=== PATIENT | male | born 1940 | race Caucasian/White ===

== ENCOUNTER 2020-01-20 16:12 | Inpatient (IN) | payer OTHER ==
[~2020-01-20] VITALS: Ht 175.3 cm; Wt 104.8 kg
[~2020-01-20 16:12] MED LIST: ACYCLOVIR 400400 MG PO; ASA5UEC PO; ASPIR 8181 MG PO; ASPIRIN325 PO; CIPRO500 MG PO; COLACE100 MG PO; COZAAR 50 MG TA50 M2; DEXILANT60 MG PO; FLAGYL500 MG PO; FLOMAX0.4 MG PO; GABAPENTIN 100100 MG PO; GLIPIZIDE 10 MG10 MG PO; GLUCOPHAGE XR500 MG PO; INVOKANA100 MG PO; K-DUR 20 MEQ T20 MEQ PO; LASIX 40 MG TAB40 M2 PO; LOTENSIN20 MG PO; METFORMIN HCL500 MG PO; MOTION RELIEF25 MG PO; NAMZARIC 28 MG1 EACH PO; NYSTATIN100000 UNI SWISH&SPIT; POTASSIUM20 PO; PREDNISONE 10 M10 MG PO; PREDNISONE 20 M20 MG PO; SEROQUEL 25 MG25 M1 PO; SIMVASTATIN40 MG PO; SYNTHROID50 MCG PO; TYLENOL325 MG PO; ZOFRAN4 MG PO
[2020-01-20 16:25] VITALS: BP 129/52
[2020-01-20 16:44] LABS: ABSOLUTE NEUTROPHILS 13.8 thou/uL (1.4-8.2); BASOPHILS 0.2 % (0.0-2.0); EOSINOPHILS 0.1 % (0.0-3.0); HEMATOCRIT 54.7 % (42.0-52.0); HEMOGLOBIN 18.4 gm/dL (14.0-18.0); LYMPHOCYTES 3.1 % (24.0-44.0); MCH 32.2 pg (26.0-34.0); MCHC 33.6 g/dL (28.0-37.0); MCV 95.7 fL (80.0-100.0); MONOCYTES 6.6 % (1.0-8.0); PLATELET COUNT 171 thou/uL (150-400); RBC 5.71 mil/uL (4.50-6.00); RDW 13.9 % (10.5-14.5); WBC 15.3 thou/uL (4.0-11.0)
[2020-01-20 17:01] LABS: ANION GAP 11 mmol/L (7-16); BUN 70 mg/dL (7-18); CALCIUM 7.7 mg/dL (8.5-10.1); CHLORIDE 103 mmol/L (98-107); CO2 24 mmol/L (21-32); GLUCOSE 316 mg/dL (74-106); POTASSIUM 4.4 mmol/L (3.5-5.1); SODIUM 138 mmol/L (136-145)
[2020-01-20 17:06] LABS: URINE BILIRUBIN 3+ (Negative); URINE BLOOD 1+ (Negative); URINE CLARITY CLEAR; URINE COLOR YELLOW; URINE GLUCOSE-RANDOM* 1+ (Negative); URINE KETONES 1+ (Negative); URINE LEUKOCYTES-REFLEX NEGATIVE (Negative); URINE NITRITE-REFLEX NEGATIVE (Negative); URINE PROTEIN (DIPSTICK) 1+ (Negative); URINE SPECIFIC GRAVITY >= 1.030 (1.005-1.035)
[2020-01-20 17:08] LABS: ICTOTEST (BILI CONFIRMATORY) Negative (Negative)
[2020-01-20 17:11] LABS: ALBUMIN 2.5 g/dL (3.4-5.0); SGOT 45 U/L (15-37); SGPT 26 U/L (30-65); TOTAL BILIRUBIN 2.4 mg/dL (<0.1-1.0); TOTAL PROTEIN 6.2 g/dL (6.4-8.2); TROPONIN-I <0.06 ng/mL (<0.06)
[2020-01-20 17:19] LABS: SQUAMOUS None Seen /LPF (0-3); URINE RBC 3-10 Few /HPF (0-2); URINE WBC-REFLEX 6-15 Few /HPF (0-5)
[2020-01-20 17:20] LABS: BACTERIA-REFLEX >30 Many /HPF (None Seen); HYALINE CASTS 4-10 Moderate /LPF (None Seen)
[2020-01-20 17:20] LABS: INR 1.3; PROTIME 13.8 Seconds (9.3-11.4)
[2020-01-20 17:22] LABS: CRYSTALS None Seen /LPF (None Seen); FINE GRANULAR CASTS 0-3 Few /LPF (None Seen)
[2020-01-20 18:39] LABS: HCO3 20.2 mmol/L (22.0-26.0); PCO2 35.3 mmHg (35.0-45.0); PO2 61.7 mmHg (80.0-100.0); pH 7.375 (7.360-7.450); sO2 91.3 % (92.0-98.0)
[2020-01-20 21:32] VITALS: BP 133/105
[2020-01-20 21:37] VITALS: BP 103/65
[2020-01-20 21:46] VITALS: BP 145/61
[2020-01-20 22:15] VITALS: BP 152/121
[2020-01-20 22:46] VITALS: BP 158/77
[2020-01-21] VITALS (16 sets, daily range): BP systolic 104–153; BP diastolic 36–83
--- NOTE | 2020-01-21 04:01 | NUR ---
ASSESSMENTS CHARTED, MEDS GIVEN CHARTED. PATIENT ARRIVED IN ICU AT 2130 FROM ER WITH DIAGNOSIS OF AMS, RHABDO, FALL, UTI, SEPSIS. PATIENT LIVES ALONE, FOUND DOWN IN HIS HOUSE LAST KNOWN NORMAL WAS 2 DAYS PRIOR. PATIENT HAS WOUNDS ON HIS LEFT KNEE, LEFT FOOT, RIGHT EYE, RIGHT ARM, RIGHT SIDE CHEST AND ABDOMEN. PATIENT CONFUSED, UNABLE TO SPEAK COHERENTLY, DOES NOT FOLLOW COMMANDS ALL THE TIME. WAS CLEANED UP IN ER, NEEDED ADDITIONAL CLEANUP. SCD'S APPLIED, LEFT HAND PIV INFILTRATED SHORTLY AFTER ARRIVAL, NEW IV PLACED IN LEFT AC. PLACED ON BIPAP, ABDOMINAL BREATHING TACHYPNIC. AUSTIN IN PLACE, ACHS, ABX THERAPY AND MAINTENANCE FLUID BEING GIVEN. FALL PRECAUTIONS IN PLACE. DOES NOT APPEAR TO BE IN PAIN.
[2020-01-21 06:14] LABS: HEMATOCRIT 53.3 % (42.0-52.0); HEMOGLOBIN 18.1 gm/dL (14.0-18.0); MCH 32.2 pg (26.0-34.0); MCV 94.8 fL (80.0-100.0); PLATELET COUNT 151 thou/uL (150-400); RBC 5.62 mil/uL (4.50-6.00); RDW 14.2 % (10.5-14.5); WBC 11.1 thou/uL (4.0-11.0)
[2020-01-21 06:29] LABS: ALBUMIN 2.5 g/dL (3.4-5.0); CALCIUM 8.2 mg/dL (8.5-10.1); CREATININE 1.1 mg/dL (0.7-1.3); MAGNESIUM 2.6 mg/dL (1.8-2.4); PHOSPHORUS 3.3 mg/dL (2.5-4.9); TOTAL BILIRUBIN 1.3 mg/dL (<0.1-1.0); TOTAL PROTEIN 6.3 g/dL (6.4-8.2)
[2020-01-21 06:38] LABS: INR 1.2; PROTIME 12.7 Seconds (9.3-11.4)
--- NOTE | 2020-01-21 08:40 | NUR ---
chart review. unable to visit with brigitte via phone call rt use of bipap. will cont following as needed for dc needs.
[2020-01-21 08:59] LABS: ABSOLUTE NEUTROPHILS 9.1 thou/uL (1.4-8.2)
--- NOTE | 2020-01-21 09:38 | NUR ---
WOUND CONSULT; LIMITED ASSESSMENT DUE TO COVID19 RESTRICTIONS PER DR RAYMUNDO. PICTURES SHOW ABRAISIONS TO THE CHAEST AND ARM. NO S/S OF INFECTION. THE KNEE HAS S/S CONSISTANT WITH A DTI WITH BRUSING AND AN OPEN AREA I CANNOT R/O ANOTHER PROCESS FROM OR THE DRAINAGE FROM THIS PICTURE. THERE ARE ABRASIONS TO THE LEFT FOOT SIMILAT THE THE WOUND NOTED ABOVE. RECOMMENDATIONS; 1-BARRIER CREAM TO BUTTOCKS/SACRUM (PREVENTION MEANSRE) 2-RIGHT KNEE; XEROFORM GAUZE TO WOUND BED, COVER WITH A BORDER FOAM DAILY. 3-LEWFT FOOT; XEROFORM GAUZE TO WOUND BED, COVER WITH A BORDER FOAM DAILY. DISCUSSED WITH EDELMIRA
[2020-01-21] MEDS ORDERED: NEURONTIN100 MG PO (10:32)
[2020-01-21] MEDS ORDERED: GLIPIZIDE 10 MG10 MG PO (10:33)
--- NOTE | 2020-01-21 12:40 | NUR ---
VASCULAR ACCESS CONSULTED FOR PICC LINE. DR.D.GEHA MATTHEWS, PT HAS +BC. PT'S LABS,MEDS,HISTORY,ORDER AND CONSENT VERIFIED. ATTEMPTED RUC CEPHALIC UNABLE PASS GUIDEWIRE. ATTEMPTED KRIS CEPHALIC UNABLE TO PASS GUIDEWIRE, KRIS BASILIC WIDELY PATENT WITH USG 4FR POWER DL PICC TRIMMED TO 50CM INSERTED TO 1CM EXTERNAL STAT CXR ORDERED. PT TOLERATED WELL
--- NOTE | 2020-01-21 14:08 | EKG ---
[facility] [address] [place] [address] ELECTROCARDIOGRAM REPORT Name: AUGUST GRIER Room #: 247-P ADM IN M.R.#: [id number] Admission: 01/20/20 Attend Phys: Caterina Gonzalez MD Discharge: Date of : 42 Report #: [id number] THIS REPORT FOR: cc: Anival Singh MD, Kirk D. MD Couchonnal, Luis F. 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 : 1940 Requested By: Regine Peres Order Number: [id number] MD: Niall Tejeda Measurements Intervals [place] Rate: 79 P: -50 [place]: 344 QRS: -43 QRSD: 114 T: 77 QT: 417 QTc: 479 Interpretive Statements Sinus or ectopic atrial rhythm Prolonged [place] interval Abnormal R-wave progression, late transition LVH with IVCD, LAD and secondary repol abnrm Compared to ECG 01/26/2018 19:40:06 Electronically Signed On 01-21-2020 14:06:48 CDT by Niall Tejeda [email or web address] <ELECTRONICALLY SIGNED> By: Niall Tejeda MD 01/21/20 1406 1624 1624 Niall Tejeda MD /EPI
--- NOTE | 2020-01-21 15:15 | NUR ---
CXR SHOWS PICC GOING UP R IJ, POWER FLUSHED AND PULLED BACK. 2ND CXR STATES SAME POSITION. PULLED BACK AGAIN AND POWER FLUSHED. 3RD CXR ORDERED
--- NOTE | 2020-01-21 15:56 | NUR ---
CXR CONFIRMS PICC IN SVC, RELEASED FOR IMMEDIATE USE PER PROTOCOL TO EDWARD HICKEY
--- NOTE | 2020-01-21 16:22 | NUR ---
PATIENT REMAINS ON BIPAP THIS SHIFT. 50% O2 WITH O2 SATURATION >96%. PATIENT BIPAP MASK CHANGED BY RT THIS SHIFT. PATIENT WAS FREQUENTLY REMOVING BIPAP AND MEDICAL EQUIPMENT. PHYSICIAN NOTIFIED, PATIENT IN RESTRAINTS FOR SAFETY. SPOKE WITH PATIENT'S DAUGHTER, REPORTED PT BASELINE MENTAL STATUS IS ORIENTED TO SELF ONLY. REPORTS PT ABLE TO CARE FOR SELF AT HOME BY PERFORMING ADL'S. PT TAKES MEDS SET UP BY FAMILY IN CONTAINER AT HOME. REPORTS PATIENT AMBULATES WITH WALKER. PATIENT FOLLOWING COMMANDS TO SQUEEZE HANDS, FLEX/EXTEND EXTREMITIES, ASSIST WITH TURNING. PATIENT HAD LARGE BOWEL MOVEMENT THIS SHIFT. AUSTIN REMAINS PATENT AND SECURED. PICC LINE PLACED THIS SHIFT, MEDICATION AND FLUIDS RESUMED WHEN LINE AVAILABLE FOR USE. FALL PRECAUTIONS IN PLACE.
[2020-01-22] VITALS (12 sets, daily range): BP systolic 79–180; BP diastolic 42–133
--- NOTE | 2020-01-22 08:03 | NUR ---
ASSESSMENTS CHARTED, MEDS CHARTED GIVEN. PATIENT REMAINS CONFUSED, AND RESTLESS. ON RESTRAINTS, STILL PULLING OFF MEDICAL EQUIPMENT. C/O NEEDING A DRINK, SWABBED HIS MOUTH MULTIPLE TIMES. CHANGED FROM HIGH FLOW TO BIPAP DURING NIGHT. PATIENT HEART RHYTHM WAS IRREGULAR DURING SHIFT, PATIENT MADE DNR YESTERDAY.
[2020-01-22 10:18] LABS: HEMATOCRIT 48.5 % (42.0-52.0); HEMOGLOBIN 16.2 gm/dL (14.0-18.0); MCH 32.1 pg (26.0-34.0); MCHC 33.4 g/dL (28.0-37.0); MCV 96.2 fL (80.0-100.0); RBC 5.04 mil/uL (4.50-6.00); RDW 14.5 % (10.5-14.5); WBC 8.7 thou/uL (4.0-11.0)
[2020-01-22 10:26] LABS: CALCIUM 7.9 mg/dL (8.5-10.1); CREATININE 0.8 mg/dL (0.7-1.3); POTASSIUM 3.9 mmol/L (3.5-5.1)
--- NOTE | 2020-01-22 15:24 | NUR ---
ASSUMED CARE AT SHIFT CHANGE, ALERT AND CAN FOLLOW COMMANDS,VSS AND AFEBRILE. RESTRAINTS OFF AT 10 AM PATIENT IS ALERT, COOPERATIVE,AWARE OF HIS SUROUNDINGS,AND NEEDED MULTIPLE REORIENTATION THROUGH OUT THE DAY. AUSTIN D/CIED AND PATIENT IS VOIDING AND INCONTINENT. AND WILL CONTINUE WITH POC.
--- NOTE | 2020-01-22 16:13 | NUR ---
SW reviewed chart and spoke with attending physician. Pt is progressing towards goals for discharge. Awaiting repeat COVID-19 test results at this time. Pt will transfer out of ICU when bed is available. Pt will need therapy evals ordered once COVID results are available. GRACE is following to assist as needed with discharge planning.
--- NOTE | 2020-01-23 03:08 | NUR ---
ASSESSED AT START OF SHIFT @1900 PT AWAKE AND RESTLESS IN BED. ON 3L OF 02 AND PT KEEPS TAKING OUT O2. PULLED OUT IV. ORDERS RECEIVED FOR MITTENS RESTRAINT. MITTENS APPLIED AND PT CHECKED FREQLY. NEW IV INSERTED IN LFT UA AND ABX INFUISING. HYDRALAZINE GIVEN FOR BP 187/76. FALL PREC IN PLACE AND WILL CONT WITH POC TILL EOS.
[2020-01-23 04:04] VITALS: BP 145/60
[2020-01-23 05:45] LABS: CALCIUM 7.9 mg/dL (8.5-10.1); CREATININE 0.6 mg/dL (0.7-1.3); POTASSIUM 3.4 mmol/L (3.5-5.1)
[2020-01-23 05:52] LABS: HEMOGLOBIN 16.3 gm/dL (14.0-18.0); MCH 32.6 pg (26.0-34.0); MCV 95.9 fL (80.0-100.0); RDW 14.2 % (10.5-14.5); WBC 6.8 thou/uL (4.0-11.0)
[2020-01-23 07:45] VITALS: BP 161/58
--- NOTE | 2020-01-23 16:27 | NUR ---
PT AND OT SAW PT AND BOTH INDICATED THAT PT WOULD NEED POST ACUTE CARE STAY. CM CALLED AND SPOKE WITH PT'S DTR JONNY SHE INDICATED THAT SHE WOULD BE RECEPTIVE TO POST ACUTE CARE STAY. CM TO EMAIL [facility] LIST TOMORROW. CM TO FOLLOW INDICATED WITH DC PLANNING.
[2020-01-23 16:37] VITALS: BP 157/72
--- NOTE | 2020-01-23 18:54 | NUR ---
VSS-AFEBRILE. LUMGS DIMINISHED IN ALL ZEPEDA BILATERALLY. REMOVED MITTENS @ 1500, POLITE, AND COOPERATIVE SINCE REMOVAL. TOTAL BATH AND LINEN CHANGE. GOOD APPETITE, FINISHED ALL MEALS. CALLS APPROPRIATELY FOR ANY NEEDED ASSISTANCE, FALL PRECAUTIONS IN PLACE.
[2020-01-23 20:03] VITALS: BP 144/73
--- NOTE | 2020-01-24 03:36 | NUR ---
ASSUMED CARE OF PT @1900 ON SHIFT REPORT NO IV ACCESS PT PULLED IT OUT. PT AWAKE AND ALERT CONFUSED. AFTER MULTIPLE ATTEMPTS NO SUCCESS. OTHER FLOOR RN TRIED ZERO ATTEMPTS. PT HAS GENERALIZIED EDEMA AND FREQ URINATION. 4 + EDEMA ON RT FOOT. INCONTINENT OF URINE. O2 95/96% ON ROOM AIR. BRUISED SKIN FROM FALL PRIOR TO ADM. CALLED HOUSE SUP AND INFORMED ABOUT IV ATTEMPTS ER NURSE CAME TO UNIT TO TRY STILL NO ATTEMPT. CALLED ONCALL SELF STORAGE MANAGER AND INFORMED ABOUT IV AND DUE TO PT PULLING OUT IV EVERY SHIFT ORDERS PLACED FOR PICC LINE INSERTION IN THE AM. MIDNIGHT VANCO NOT GIVEN. FALL PREC IN PLACE AND CALL LIGHT IN REACH WILL CONT WITH POC.
[2020-01-24 04:17] VITALS: BP 127/61
[2020-01-24 07:12] VITALS: BP 145/57
--- NOTE | 2020-01-24 09:56 | NUR ---
Nutrition: Follow up at bedside. S/p VIOLIN TEACHER bedside swallow eval 01/22. Advanced to mechanical ground diet. VIOLIN TEACHER notes indicate they will follow for any further diet upgrade potential, but note pt has many missing teeth. He ate 100% of all meals yesterday. Noted to have pressure wounds to L knee (black) and L foot. No IV access; pt pulled it out. EMR indicates PICC line insertion planned today. +4 edema on R foot per RN notes, plus generalized edema. Pt reports he is eating "more than normal". States he has cut back on meats due to harder time digesting. RD educated him on increased protein needs to support skin/ wounds and identified alternative non-meat sources too. Recommended 2 protein sources/meal. Also educated on recommendation to reduce Na intake and avoid high Na foods and avoid use of salt packets. Low nutrition risk given great appetite and high protein education complete.
--- NOTE | 2020-01-24 10:03 | NUR ---
REC adding 2 g Na diet restriction to current diet order given edema. RD did educate pt today on high Na foods to avoid and encouraged him to flavor foods without salt to minimize further swelling/fluid retention. Note pt also on Humalog SSI q6 hrs w/ BGs ranging 157-192 mg/dl. If BGs remain elevated, could also consider adding carb restrictions as well.
--- NOTE | 2020-01-24 10:54 | NUR ---
Assumed care of pt at 0700. Pt alert but confused. Denies pain. Bruises noted. No IV access. Order for PICC line is in. Provider states to hold off on PICC line until he talks to ID b/c pt might not need PICC. IV team aware. Q2h turn. Pt walked with physical therapy. Feeder/setup. Fall precautions in place. Will continue to monitor.
--- NOTE | 2020-01-24 12:06 | NUR ---
VASCULAR ACCESS CONSULTED FOR PICC LINE PT HAD A PICC AND PULLED IT OUT IN LESS THAN 24 HRS. ORDER CANCELLED PIV PER DR Yessi MONTAÑO
[2020-01-24 15:25] VITALS: BP 111/64
--- NOTE | 2020-01-24 16:15 | NUR ---
DEMETRIO HAD SENT PT'S DTR JONNY [facility] SN[facility] LIST FOR REVIEW. SHE ASKED THAT REFERRAL BE SENT TO RW FOR REVIEW FOR SHORT TERM SKILLED REHAB STAY WITH POSSIBLE LTC MEM CARE IS PT ISN'T REHABED BACK TO WHERE HE WOULD BE SAFE TO LIVE INDEPENDENTLY. REFERRAL TO BE SENT. CARE TEAM INDICATED THAT PT MAY BE MEDCIALLY STABLE TO DC OVER WEEKEND. IF SO PLEASE CONTACT ELVIS AT TO FACILITATE DC.
[2020-01-24 20:21] VITALS: BP 141/60
[2020-01-25 03:45] VITALS: BP 147/56
--- NOTE | 2020-01-25 03:48 | NUR ---
RECIEVED CARE OF THIS PATIENT AT 1900. PATIENT ALERT AND CONFUSED. ORIENTED TO SELF ONLY. C/O PAIN IN KRISTIE, CALLED TO GET MED FOR PATIENT. WHEN READY TO GIVE WENT IN TO ASK IF HE WAS STILL IN PAIN AND HE SAID NO. DID NOT SHOW ANY SIGNS OF PAIN. PATIENT HAS SORES IN VARING STAGES OF HEALING ALL OVER BODY. IV IN YVETTE WITH COBAN WRAPPED AROUND. ACCUCHECK WAS 177, RECIEVED 3 UNITS LISPRO INSULIN. AT ONE TIME WAS VERY AGITATED. SLEPT MOST OF NIGHT.
[2020-01-25 07:40] VITALS: BP 145/72
--- NOTE | 2020-01-25 11:21 | NUR ---
Assumed care of pt at 0700. Pt aelrt but confused. Follows commands. IVF discontinued. Pt has DVT on right lower extremity. Provider aware. Provider spoke with pt's family and updated them on pt's status. Fall precautions in place. Will continue to monitor.
[2020-01-25 15:58] VITALS: BP 135/45
[2020-01-25 19:40] VITALS: BP 111/65
--- NOTE | 2020-01-26 03:06 | NUR ---
PT LYING IN BED. VOIDING PER URINAL WITH SOME INCONTINENCE. DENIES PAIN. RESTING COMFORTABLY. NO NEEDS VOICED. FREQUENT OBSERVATION.
[2020-01-26 04:20] VITALS: BP 148/51
[2020-01-26 07:33] VITALS: BP 160/83
--- NOTE | 2020-01-26 15:24 | NUR ---
PT ASSESSED AT START OF SHIFT. STILL CONFUSED AND FORGETFUL BUT IN HAPPY MOOD AND LIKES TO JOKE W/ NURSE. FEEDING SELF AND EATING/DRINKING WELL. INCONTINENT OF URINE. DR. LOZA HERE TO CHECK WOUNDS-ORDERS NOTED. PT TURNED Q2HRS. NO C/O PAIN. TALKED W/ DTR AND SHE BROUGHT SOME CLOTHES FOR PT TO TRANSFER IN ON DISCHARGE TO REHAB CARE WHEN DC'D.
[2020-01-26 15:33] VITALS: BP 138/65
[2020-01-26 19:13] VITALS: BP 141/90
[2020-01-27 03:38] VITALS: BP 164/62
--- NOTE | 2020-01-27 04:43 | NUR ---
PT LYING IN BED. INCONTINENT. NO APPARENT PAIN. RESTING COMFORTABLY. NO NEEDS VOICED. FREQUENT OBSERVATION.
[2020-01-27 07:31] VITALS: BP 165/61
[2020-01-27] MEDS ORDERED: ASPIRIN325 PO (12:12)
[2020-01-27] MEDS ORDERED: AMMONIUM LACTA226 GM TOP (12:12)
--- NOTE | 2020-01-27 12:12 | NUR ---
REFERRAL HAD BEEN SENT TO [facility] LAST WEEK PER DTR'S REQUEST. CM FOLLOWED UP WITH THEM THIS AM. [facility] CAN ACCEPT PT. CARE TEAM INDICATED PT IS MEDICALLY STABLE TO DC THIS DAY. CHART COPY ORDERED. ORDERS TO BE FAXED ONCE COMPLETED. WHEELCHAIR VAN ORACLE APPLICATIONS ANALYST ARRANGED BETWEEN [phone]. REPORT TO BE CALLED TO . CM CALLED AND LEFT VM FOR PT'S DTR. NO OTHER CM INTERVENTION INDICATED. CASE CLOSED.
[2020-01-27] MEDS ORDERED: KEFLEX500 M1 PO (12:19)
--- NOTE | 2020-01-27 14:50 | NUR ---
ASSUMED CARE OF THE PATIENT AT 0715, PATIENT ALERT X 1-2 WITH CONFUSION. PATIENT DENIES PAIN. PATIENT AMBULATED WITH PHYSICAL THERAPY TODAY. PATIENT HAD RIGHT UPPER ARM IV IN PLACE. WOUND CARE DONE TO LEFT KNEE, AND LEFT FOOT, PICTURES TAKEN, WOUND CARE DONE TOR RIGHT ELBOW. PATIENT WILL DISCHARGE TO [facility], REPORT GIVEN TO DON/RN AT THE FACILITY. RIGHT ARM IV REMOVED PRIOR TO DISCHARGE. PATIENT HAS EDEMA TO SONNY. LOWER EXTREMITIES, GENERALIZED OVER BODY. DISCHARGE PAPERWORK AND ALL PERSONAL BELONGINGSS SENT WITH THE PATIENT.
--- NOTE | 2020-01-28 11:37 | HC ---
[facility] [address] [address] CONSULTATION Name: AUGUST GRIER Room #: 436-P [facility] IN M.R.#: [id number] Admission: 01/20/20 Attend Phys: Caterina Gonzalez MD Discharge: 01/27/20 Date of : 42 Report #: [id number] THIS REPORT FOR: cc: Anival Singh MD, Kirk D. MD Althoff, Jeffrey R. MD ~ CC: Anival Gonzalez DATE OF SERVICE: 01/24/2020 CHIEF COMPLAINT: Multiple ulcerations. HISTORY OF PRESENT ILLNESS: This is a 79-year-old male patient who was apparently found down prior to his admission, he was admitted with rhabdomyolysis, respiratory failure and acute mental status changes. He was admitted on 01/20/2020. I was asked to see him today regarding multiple ulcerations. The patient can provide no information about himself and seems quite confused, although does interact. PAST MEDICAL HISTORY: From review of his records, known for coronary artery disease, congestive heart failure, hypercholesterolemia, hypertension, back pain, previous cholecystectomy, type 2 diabetes mellitus, dementia, morbid obesity, hypothyroidism, peptic ulcer disease, coronary artery disease, status post myocardial infarction, cerebrovascular accident, spinal arthritis with bulging disks, history of heat stroke in the past and history of pneumonia. SOCIAL HISTORY: Negative for alcohol or tobacco use. FAMILY HISTORY: Unknown. MEDICATIONS: Include metformin, Flomax, Zocor, Lasix, Glucotrol, Neurontin, Synthroid, Seroquel, aspirin. ALLERGIES: PENICILLIN, STRAWBERRIES, CODEINE, HYDROMORPHONE AND MORPHINE. REVIEW OF SYSTEMS: Unobtainable due to the patient's uncooperativeness and mental status. PHYSICAL EXAMINATION: VITAL SIGNS: At this time include temperature 36.7, pulse 55, respiratory rate 18, blood pressure 111/64. GENERAL: This is a somewhat chronically ill-appearing male patient who appears to be in no obvious distress. HEENT: Head normocephalic. Nose and throat are clear. NECK: Supple. [facility] [address] [place] [address] CONSULTATION Name: AUGUST GRIER Room #: 436-P [facility] IN M.R.#: [id number] Admission: 01/20/20 Attend Phys: Caterina Gonzalez MD Discharge: 01/27/20 Date of : 42 Report #: [id number] LUNGS: Diminished. ABDOMEN: Soft, nontender. EXTREMITIES: Examination of the skin and extremities demonstrate a stage 3 pressure ulceration to the right elbow. A large amount of bruising to the right forearm and right upper arm abrasions to the right chest and abdominal wall bruise with ecchymoses to the left arm and small bulla to the left forearm. Abrasion to the right knee, an unstageable pressure ulceration to the left medial knee with mixture of some granulation in the periphery and a large moist area of eschar and fibrin in the center and stage 3 pressure ulceration to the left medial foot. LABORATORY DATA: Include sodium 142, potassium 3.4, chloride 107, CO2 of 24, BUN 30, creatinine 0.6, glucose 154. C-reactive protein is 303. Albumin is 2.5. White blood cell count 6.0 with hemoglobin 16.3. CLINICAL IMPRESSION: 1. Stage 3 pressure ulcer to the left elbow. 2. Ecchymosis to the right forearm and upper arm. 3. Abrasions to the right chest wall and abdominal wall. 4. Ecchymoses to left arm with multiple bullae to the left forearm. 5. Abrasion to the right knee. 6. Unstageable pressure ulcer to the left medial knee. 7. Stage 3 pressure ulcer to the left medial foot. RECOMMENDATIONS: At this point in time, we will recommend AmLactin lotion to both lower legs and feet for dry skin. Gentamicin ointment, Xeroform, ABD to the left knee and left medial foot. We will need to debride his left knee, but he will not allow me to do so at this point in time. We will try to soften the slough and eschar and try again in the next day or two to see if we can do so. We will check an arterial Doppler of the lower extremities. He will have a low air loss mattress and q. 2 hour turning and positioning, PRAFO boots for pressure prophylaxis, aggressive nutritional support. I appreciate being asked to see the patient in consultation. <ELECTRONICALLY SIGNED> By: Heraclio Busby MD 01/28/20 1137 1628 193 Heraclio Busby MD /nt
== END 2020-01-27 14:27 | DRG 871 ==
LOC: ER 16:12 → EROBS 18:41 → ICU 18:41 → 4S 01-22 17:54
PROVIDERS: Hospitalist; Nurse Practitioner Family; ADMIT Internal Medicine
DX: A41.1 Sepsis due to other specified staphylococcus (principal); L89.893 Pressure ulcer of other site, stage 3; J96.01 Acute respiratory failure with hypoxia; J18.9 Pneumonia, unspecified organism; G93.41 Metabolic encephalopathy; N17.0 Acute kidney failure with tubular necrosis; L89.023 Pressure ulcer of left elbow, stage 3; M62.82 Rhabdomyolysis; I82.431 Acute embolism and thrombosis of right popliteal vein; I82.411 Acute embolism and thrombosis of right femoral vein; L03.90 Cellulitis, unspecified; E03.9 Hypothyroidism, unspecified; R65.20 Severe sepsis without septic shock; I11.0 Hypertensive heart disease with heart failure; I50.9 Heart failure, unspecified; S30.811A Abrasion of abdominal wall, initial encounter; E11.9 Type 2 diabetes mellitus without complications; I25.10 Atherosclerotic heart disease of native coronary artery without angina pectoris; E78.00 Pure hypercholesterolemia, unspecified; F03.90 Unspecified dementia, unspecified severity, without behavioral disturbance, psychotic disturbance, mood disturbance, and anxiety; F17.200 Nicotine dependence, unspecified, uncomplicated; E66.01 Morbid (severe) obesity due to excess calories; S40.021A Contusion of right upper arm, initial encounter; L89.890 Pressure ulcer of other site, unstageable; Z60.2 Problems related to living alone; Z66 Do not resuscitate; K59.00 Constipation, unspecified; Y93.89 Activity, other specified; N30.90 Cystitis, unspecified without hematuria; N40.0 Benign prostatic hyperplasia without lower urinary tract symptoms; S80.211A Abrasion, right knee, initial encounter; S50.11XA Contusion of right forearm, initial encounter; M46.90 Unspecified inflammatory spondylopathy, site unspecified; W18.39XA Other fall on same level, initial encounter; Z95.1 Presence of aortocoronary bypass graft; Z90.49 Acquired absence of other specified parts of digestive tract; Z68.34 Body mass index [BMI] 34.0-34.9, adult; Z79.4 Long term (current) use of insulin; Y92.89 Other specified places as the place of occurrence of the external cause; Y99.8 Other external cause status; I25.2 Old myocardial infarction; Z86.73 Personal history of transient ischemic attack (TIA), and cerebral infarction without residual deficits; Z87.01 Personal history of pneumonia (recurrent); Z79.899 Other long term (current) drug therapy; Z79.82 Long term (current) use of aspirin; Z79.84 Long term (current) use of oral hypoglycemic drugs; Z88.6 Allergy status to analgesic agent; Z88.5 Allergy status to narcotic agent; Z88.0 Allergy status to penicillin; S20.311A Abrasion of right front wall of thorax, initial encounter; Z91.018 Allergy to other foods; Z87.11 Personal history of peptic ulcer disease; Z03.818 Encounter for observation for suspected exposure to other biological agents ruled out
CPT/HCPCS: 10078; 10102; 10203; 27000

== ENCOUNTER 2020-03-25 12:30 | Emergency (ER) | payer OTHER ==
[~2020-03-25] VITALS: Ht 185.4 cm; Wt 97.5 kg
[~2020-03-25 12:30] MED LIST changes: +AMMONIUM LACTA226 GM TOP; +KEFLEX500 M1 PO; +NEURONTIN100 MG PO
[2020-03-25 13:06] LABS: ABSOLUTE NEUTROPHILS 3.3 thou/uL (1.4-8.2); BASOPHILS 0.9 % (0.0-2.0); EOSINOPHILS 0.9 % (0.0-3.0); HEMOGLOBIN 16.6 gm/dL (14.0-18.0); MCH 32.5 pg (26.0-34.0); MCHC 34.6 g/dL (28.0-37.0); PLATELET COUNT 131 thou/uL (150-400); POLYS 70.2 % (36.0-66.0); RDW 13.4 % (10.5-14.5); WBC 4.7 thou/uL (4.0-11.0)
[2020-03-25 13:18] LABS: ANION GAP 6 mmol/L (7-16); BUN 10 mg/dL (7-18); CALCIUM 8.6 mg/dL (8.5-10.1); CHLORIDE 97 mmol/L (98-107); CO2 33 mmol/L (21-32); CREATININE 1.1 mg/dL (0.7-1.3); GLUCOSE 185 mg/dL (74-106); SODIUM 136 mmol/L (136-145)
[2020-03-25 13:28] LABS: ALBUMIN 3.1 g/dL (3.4-5.0); SGOT 65 U/L (15-37); SGPT 72 U/L (30-65); TOTAL BILIRUBIN 1.8 mg/dL (0.2-1.0); TROPONIN-I <0.06 ng/mL (<0.06)
[2020-03-25 15:27] VITALS: BP 101/57
--- NOTE | 2020-03-26 08:54 | EKG ---
[facility] [address] [place] [address] ELECTROCARDIOGRAM REPORT Name: AUGUST GRIER Room #: [facility].#: [id number] Admission: 03/25/20 Attend Phys: Discharge: 03/25/20 Date of : 42 Report #: [id number] THIS REPORT FOR: cc: Wilbert Jaeger James D. DO Lundgren, Craig H. 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 : 1940 Requested By: Regine Peres Order Number: [id number] MD: Christopher Alegria Measurements Intervals [place] Rate: 79 P: 0 NE: QRS: -49 QRSD: 121 T: 74 QT: 440 QTc: 505 Interpretive Statements Sinus rhythm with complete heart block Left bundle branch block Compared to ECG 01/20/2020 16:24:19 No significant change was found Electronically Signed On 03-26-2020 8:53:48 CDT by Christopher Alegria [email or web address] <ELECTRONICALLY SIGNED> By: Christopher Alegria MD, [facility] 03/26/20 0853 1545 1545 Christopher Alegria MD, [facility] /EPI
--- NOTE | 2020-03-26 09:03 | NUR ---
Dr Mariscal calls department today 03/26/20 post reading EKG from yesterday. Dr Mariscal reports patient is in complete heart block on recent EKG as well as an old EKG from December. Dr Walton notified as well as ER charge nurse, EDELMIRA Rader.
== END 2020-03-25 19:25 ==
LOC: ER 12:30
PROVIDERS: Nurse Practitioner Family
DX: S01.01XA Laceration without foreign body of scalp, initial encounter (principal); R79.89 Other specified abnormal findings of blood chemistry; I10 Essential (primary) hypertension; I11.0 Hypertensive heart disease with heart failure; I50.9 Heart failure, unspecified; E11.9 Type 2 diabetes mellitus without complications; E78.5 Hyperlipidemia, unspecified; I25.10 Atherosclerotic heart disease of native coronary artery without angina pectoris; I25.2 Old myocardial infarction; E03.9 Hypothyroidism, unspecified; F17.200 Nicotine dependence, unspecified, uncomplicated; Z90.49 Acquired absence of other specified parts of digestive tract; Z86.73 Personal history of transient ischemic attack (TIA), and cerebral infarction without residual deficits; Z79.82 Long term (current) use of aspirin; Z79.2 Long term (current) use of antibiotics; Z79.899 Other long term (current) drug therapy; Z88.0 Allergy status to penicillin; Z88.5 Allergy status to narcotic agent; Z91.018 Allergy to other foods; W01.198A Fall on same level from slipping, tripping and stumbling with subsequent striking against other object, initial encounter; Y93.89 Activity, other specified; Y92.89 Other specified places as the place of occurrence of the external cause; Y99.8 Other external cause status

== ENCOUNTER 2021-04-16 15:01 | Emergency (ER) | payer OTHER ==
[~2021-04-16] VITALS: Ht 185.4 cm; Wt 97.5 kg
[2021-04-16] MEDS ORDERED: HYDROCODON-ACE1 EAC7 PO (17:05)
[2021-04-16 18:51] VITALS: BP 139/52
== END 2021-04-16 17:43 | disposition home or self-care (01) ==
LOC: ER 15:01
DX: S42.291A Other displaced fracture of upper end of right humerus, initial encounter for closed fracture (principal); S09.90XA Unspecified injury of head, initial encounter; I25.10 Atherosclerotic heart disease of native coronary artery without angina pectoris; I11.0 Hypertensive heart disease with heart failure; I50.9 Heart failure, unspecified; E78.00 Pure hypercholesterolemia, unspecified; E11.9 Type 2 diabetes mellitus without complications; E03.9 Hypothyroidism, unspecified; I73.9 Peripheral vascular disease, unspecified; I25.2 Old myocardial infarction; Z90.49 Acquired absence of other specified parts of digestive tract; Z79.82 Long term (current) use of aspirin; Z79.899 Other long term (current) drug therapy; Z88.6 Allergy status to analgesic agent; Z88.0 Allergy status to penicillin; Z91.018 Allergy to other foods; Z87.891 Personal history of nicotine dependence; W07.XXXA Fall from chair, initial encounter; Y93.89 Activity, other specified; Y92.89 Other specified places as the place of occurrence of the external cause; Y99.8 Other external cause status

== ENCOUNTER 2021-05-18 10:04 | Inpatient (IN) | payer OTHER ==
[~2021-05-18] VITALS: Ht 172.7 cm; Wt 92.1 kg
--- NOTE | ~2021-05-18 | EMS ---
[address] [address] EMS Patient Care Report Name: AUGUST GRIER Room #: REG CYRUS George#: [id number] Admission: 05/18/21 Attend Phys: Discharge: Date of : 42 Report #: [id number] THIS REPORT FOR: //name// Report Transmitted: 05/18/2021 10:19 EMS Care Summary [place], [place]/[facility] Incident [id number] @ 05/18/2021 09:25 Incident Location [address] [place] [address]-A Patient AUGUST GRIER Male, 80 Years 1940 Patient Address [address] [place] [address] [place] [id number] Patient History Congestive Heart Failure (CHF),Diabetes,Hypertension (HTN),Gastro-Esophageal Reflux Disease (GERD), Patient Allergies Codeine,Penicillin allergy,Morphine,Hydrocodone,[place] allergy, Patient Medications Torsemide, Simvastatin, Glipizide, Cholecalciferol, ASA, Chief Complaint Femoral neck fx Disposition Transported No Lights/[place] Dispatch Reason Traumatic Injury Transported To [facility] Narrative Arrived on the scene for a 80 y/o male that is lying on his right side in his bed. Staff said that the Pt fell about a month ago and fx his upper arm. [address] [address] EMS Patient Care Report Name: AUGUTS GRIER Room #: REG CYRUS George#: [id number] Admission: 05/18/21 Attend Phys: Discharge: Date of : 42 Report #: [id number] Staff said that he has been complaining of pain and they assumed that it was is arm. Pt told them that his left hip hurts and they decided to have it x-rayed. They got the results today and it said that he has a femoral neck fx. They are having the Pt taken to the hospital to see if anything can be done for it. Staff didn't know when or how it happened. Pt is unable to tell us how it happened either. See Pt Assessment Femoral neck fx See Flowchart. Moved the Pt from the bed to the cot via pull sheet. Transported to the hospital with zero change or incidents. Moved the Pt from the cot to the bed via sheet. Transferred care to receiving facility. Initial Vitals @09:52P: 84,R: 16,BP: 111/83,Pain: 8/10,GCS: 15,CO: 0,SpO2: 95,Revised Trauma: 12, @10:04P: 80,R: 16,BP: 114/84,Pain: 8/10,GCS: 15,SpO2: 95,Revised Trauma: 12, Assessments @:42MENTAL:Event Oriented,Time Oriented,Place Oriented,Person Oriented,SKIN:HEENT:Head/Face: No Abnormalities,Eyes: No Abnormalities,Neck/Airway: No Abnormalities,LUNG SOUNDS:General: No Abnormalities,Left Upper: No Abnormalities,Right Upper: No Abnormalities,Left Lower: No Abnormalities,Right Lower: No Abnormalities,ABDOMEN:General: No Abnormalities,Left Upper: No Abnormalities,Right Upper: No Abnormalities,Left Lower: No Abnormalities,Right Lower: No Abnormalities,PELVIS//GI:Tenderness,EXTREMITIES:Left Leg: Other,Left Arm: No Abnormalities,Right Arm: No Abnormalities,Right Leg: No Abnormalities,PULSE:Radial: 2+ Normal,NEURO:No Abnormalities, Impression Injury of Hip Procedures @09:42ALS AssessmentResponse: UnchangedSucceeded Timeline 09:24,Call Received :24,Dispatch Notified 09:25,Dispatched 09:26,En Route 09:39,On Scene 09:42,At Patient [facility] [address] [place] [address] EMS Patient Care Report Name: AUGUST GRIER ABBIE Room #: REG CYRUS George#: [id number] Admission: 05/18/21 Attend Phys: Discharge: Date of : 42 Report #: [id number] 09:42,ALS Assessment,Response: UnchangedSucceeded, 09:51,Depart Scene 09:52,BP: 111/83 M,PULSE: 84,RR: 16 R,SPO2: 95 Ox,ETCO2: ,BG: ,PAIN: 8,GCS: 15, 10:01,At Destination 10:04,BP: 114/84 M,PULSE: 80,RR: 16 R,SPO2: 95 Ox,ETCO2: ,BG: ,PAIN: 8,GCS: 15, 10:19,Call Closed Disclaimer v1.1 Copyright 2020 [employer] This EMS Care Summary contains data elements from the applicable legal record (which may be displayed differently). It is designed to provide pertinent information for the following purposes: continuity of care, clinical quality, and state data reporting. The complete legal record is available to ED staff and administrators of the receiving hospital in [employer]'s Patient Tracker. All data is provided "as is."
[~2021-05-18 10:04] MED LIST changes: +HYDROCODON-ACE1 EAC7 PO
[2021-05-18 10:05] VITALS: BP 122/61
[2021-05-18] MEDS ORDERED: LEVOTHYROXINE100 MCG PO (10:07)
[2021-05-18] MEDS ORDERED: K-DUR 20 MEQ T20 MEQ PO (10:07)
[2021-05-18] MEDS ORDERED: DOXYCYCLINE HY100 M3 PO (10:07)
[2021-05-18] MEDS ORDERED: MIRTAZAPINE15 M2 PO (10:07)
[2021-05-18] MEDS ORDERED: TAMSULOSIN HCL0.4 MG PO (10:08)
[2021-05-18] MEDS ORDERED: EUCERIN CREME57 GM TOP (10:08)
[2021-05-18] MEDS ORDERED: FUROSEMIDE 40 M40 M1 PO (10:08)
[2021-05-18] MEDS ORDERED: GLIPIZIDE 10 MG10 MG PO (10:11)
[2021-05-18] MEDS ORDERED: [UNRECOGNIZED DRUG - OTHER] PO (10:11)
[2021-05-18] MEDS ORDERED: GLYCOLAX119 GM PO (10:12)
[2021-05-18] MEDS ORDERED: LUBRICATING TEA15 ML OPHTHALMIC (10:13)
[2021-05-18] MEDS ORDERED: SIMVASTATIN80 MG PO (10:14)
[2021-05-18 10:29] LABS: ABSOLUTE NEUTROPHILS 7.6 thou/uL (1.4-8.2); BASOPHILS 0.7 % (0.0-2.0); EOSINOPHILS 1.8 % (0.0-3.0); HEMATOCRIT 44.2 % (42.0-52.0); HEMOGLOBIN 14.5 gm/dL (14.0-18.0); LYMPHOCYTES 9.8 % (24.0-44.0); MCH 30.9 pg (26.0-34.0); MCHC 32.8 g/dL (28.0-37.0); MCV 94.2 fL (80.0-100.0); MONOCYTES 6.3 % (1.0-8.0); PLATELET COUNT 227 thou/uL (150-400); POLYS 81.4 % (36.0-66.0); WBC 9.3 thou/uL (4.0-11.0)
--- NOTE | 2021-05-18 10:40 | NUR ---
CT CALLED AND STATED THAT PT IS AGRESSIVE AND HITTING STAFF. DR. FIGUEROA MADE AWARE, ORDER RECEIVED
[2021-05-18 10:42] LABS: CALCIUM 8.5 mg/dL (8.5-10.1)
[2021-05-18 10:49] LABS: APTT 25.2 Seconds (24.5-32.8); INR 1.09; PROTIME 11.8 Seconds (10.5-12.1)
[2021-05-18 10:52] LABS: ALBUMIN 2.6 g/dL (3.4-5.0); TOTAL BILIRUBIN 0.9 mg/dL (0.2-1.0); TOTAL PROTEIN 6.4 g/dL (6.4-8.2)
[2021-05-18 11:28] LABS: URINE BILIRUBIN NEGATIVE (Negative); URINE BLOOD 1+ (Negative); URINE CLARITY CLEAR; URINE COLOR YELLOW; URINE GLUCOSE-RANDOM* 2+ (Negative); URINE KETONES NEGATIVE (Negative); URINE LEUKOCYTES-REFLEX NEGATIVE (Negative); URINE NITRITE-REFLEX NEGATIVE (Negative); URINE PROTEIN (DIPSTICK) NEGATIVE (Negative); URINE SPECIFIC GRAVITY 1.025 (1.005-1.035); URINE UROBILINOGEN 0.2 E.U./dl (0.2-1.0)
[2021-05-18 11:39] LABS: CASTS None Seen /LPF (None Seen); MUCUS >6 Heavy strn/LPF (None Seen); SQUAMOUS 0-3 Few /LPF (0-3)
[2021-05-18 11:40] LABS: BACTERIA-REFLEX None Seen /HPF (None Seen); CRYSTALS None Seen /LPF (None Seen); URINE RBC 3-10 Few /HPF (NONE SEEN); URINE WBC-REFLEX 0-5 Rare /HPF (0-5)
[2021-05-18 13:05] VITALS: BP 118/36
--- NOTE | 2021-05-18 15:00 | EKG ---
[address] [place] [address] ELECTROCARDIOGRAM REPORT Name: AUGUST GRIER Room #: 446-P ADM IN M.R.#: [id number] Admission: 05/18/21 Attend Phys: Devyn Graham, Discharge: Date of : 42 Report #: [id number] 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 : 1940 Requested By: Luke Branham Order Number: [id number] MD: Alli Cueva Measurements Intervals [place] Rate: 64 P: 14 NC: QRS: -44 QRSD: 129 T: 55 QT: 441 QTc: 455 Interpretive Statements Sinus rhythm Atrial premature complexes Second deg AVB, Mobitz I (Wenckebach) Biatrial enlargement Compared to ECG 03/25/2020 15:45:22 Atrial premature complex(es) now present Atrial abnormality now present Electronically Signed On 05-18-2021 15:00:42 CDT by Alli Cueva [email or web address] <ELECTRONICALLY SIGNED> By: Alli Cueva MD, FACC 05/18/21 1500 1031 1031 Alli Cueva MD, [facility] /EPI
--- NOTE | 2021-05-18 17:01 | NUR ---
PT TRANSFER TO 4S APPROX 1400 FROM ED. PT IS VERY AGGRESSIVE, AGITATED, IMPULSIVE, UN-REDIRECTABLY, PSYCH CONSULTED. NEW WOUND ON COCCYX FOUND, WOUND CARE TEAM HAS BEEN CONSULTED. PT NEEDED TO BE PLACED ON TELEMETRY DUE TO A SECOND DEGREE MOBITZ TYPE 2 A/V BLOCK BUT THIS INOFORMATION WAS NEVER PASSED ON TO ACCEPTING RN, TELEMETRY PLACED AND PT INSTANTANEOUSLY PULLED LEADS OFF. SPEECH CONSULTED TO BE CLEAR ABOUT SWALLOWING ABILITIES. RN IS UNABLE TO GET PT TO FOLLOW ANY HIP PRECAUTION PROTOCALS/ORDERS. PT IS IN NEED OF [facility] CATH DUE TO IMMOBILIZATION AND SKIN CONCERNS. HOWEVER, PT CONTINUES TO BE PHYSICALLY AND VERBALLY ABUSIVE TO STAFF WHEN [place] INSERTION/EDUCATION IS ATTEMPTED. WAITING FOR PROVIDER TO GIVE SEDATION MEDICATIONS AND ORDERS FOR MITTENS IN HOPES THAT A [place] CAN BE PLACED. SPOKE WITH DAUGHTER JONNY AND SHE IS AMENABLE TO OUR INTERVENTIONS AND POC. BOTH DAUGHTER AND PT HAVE BEEN THOUROUGHLY UPDATED AND EDUCATED ON PT CONDITION AND POC. PT NOT PROGRESSING TOWARDS POC. UNSURE TO WHAT IS HAPPENING IN REGARDS TO SURGICAL INTERVENTIONS TOMORROW? DAUGHTER WOULD LIKE MUCH HELP POSSIBLE FROM CASE MANAGEMENT TO GET PT AWAY FROM [facility].
[2021-05-18 17:29] VITALS: BP 123/61
[2021-05-18 19:47] VITALS: BP 121/63
--- NOTE | 2021-05-19 00:34 | NUR ---
ASSESSMENT COMPLETED. PT CONFUSED. HE HAS BEEN CALM SINCE THE START OF SHIFT. TELE PLACED, PT IS LANCE. AUSTIN PLACED, DARK YELLOW U/O NOTED. PT WITH TRACE EDEMA TO LEGS , DRY SCALY SKIN NOTED. PT WITH LEFT FEM NECK FRACTURE, NPO AFTER MODNOC WITH PLANS FOR SURGERY TOMORROW.CONTINUES ON IVF VIA LEFT WRIST PIV.FALL PREC IN PLACE. WILL CONTINUE WITH POC TILL EOS.
[2021-05-19 04:17] VITALS: BP 128/57
[2021-05-19 07:27] VITALS: BP 112/55
--- NOTE | 2021-05-19 10:31 | NUR ---
ASSUMED PT CARE THIS AM. PT IS DISORIENTED X4 AND IRRITABLE AT [facility]. PT HAS IV SITE ON L UA RUNNING LS @80ML/HR. PT IS ON TELE MONITOR ON. PT HAS AUSTIN CATH IN PLACE. PT IS ON ROOM AIR. WILL HAVE SURGERY TODAY. PT HAS BEEN NPO SINCE MIDNIGHT. WILL CONTINUE TO MONITOR PT. FOLLOW POC.
--- NOTE | 2021-05-19 14:39 | NUR ---
ASSESSMENT: CM REVIEWED CHART AND SPOKE WITH PATIENT AT THE BEDSIDE. PT IS UNABLE TO APPROPRIATELY ANSWER QUESTIONS. PT IS A LTC RESIDENT FROM [facility]. CM UPDATED LIASON CAT FROM FACILITY AND FAXED UPDATED PAPERWORK. PER CAT PT NORMALLY USES A WHEELCHAIR AT THE FACILITY. PT WAS RECENTLY IN OUR ER ABOUT A MONTH AGO. CM ATTEMPTED TO REACH JONNY PTS DPOA BUT UNABLE TO REACH AND VM WAS LEFT. CM SPOKE WITH PATIENTS DAUGHTER DECLAN WHO IS LISTED AND SHE REPORTS SHE HAS BEEN TRYING TO REACH JONNY ALSO. PER NOTES ORTHO PHYSICAN WAS ABLE TO REACH DPOA AND PT IS TO HAVE LEFT HIP HEMIARTHROPLASTY. CM WILL CONTINUE TO FOLLOW AND UPDATE THE FACILITY.
--- NOTE | 2021-05-19 15:44 | EKG ---
[address] [address] ELECTROCARDIOGRAM REPORT Name: AUGUST GRIER Room #: 446- ADM IN M.R.#: [id number] Admission: 05/18/21 Attend Phys: Devyn Graham, Discharge: Date of : 42 Report #: [id number] 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 : 1940 Requested By: Andre Ocampo Order Number: [id number] MD: Alli Cueva Measurements Intervals [place] Rate: 43 P: -27 NJ: QRS: -39 QRSD: 127 T: 32 QT: 506 QTc: 428 Interpretive Statements Sinus rhythm 1 degree AVB Left atrial enlargement Nonspecific IVCD with LAD Left ventricular hypertrophy Compared to ECG 05/18/2021 10:31:45 Intraventricular conduction delay now present Left ventricular hypertrophy now present Atrial premature complex(es) no longer present Electronically Signed On 05-19-2021 15:43:51 CDT by Alli Cueva [email or web address] <ELECTRONICALLY SIGNED> By: Alli Cueva MD, [facility] 05/19/21 1543 [phone] Alli Cueva MD, [facility] /EPI
[2021-05-19 17:53] VITALS: BP 132/65
[2021-05-19 20:32] VITALS: BP 138/71
--- NOTE | 2021-05-19 23:16 | NUR ---
ASSESSMENT COMPLETED. POST OP LEFT HIP. MOSTLY SLEEPING BUT WAKES UP TO TAKE TELE LEADS OFF- VERY HARD TO LEAVE THM ON. PT ALSO PULLED OFF PIV. AUSTIN IN PLACE. FREQUENT MONITORING PROVIDED. PT IS CONFUSED. REPOSITIONED IN BED. MANISH CREAM APPLIED TO PRESSURE SORE ON SACCRUM. PT IS AFEBRILE. LEFT HIP WITH PHILLIP DRESSING. IVF INFUSING. NO FURTHER CONCERNS. WILL CONTINUE WITH POC TILL EOS.
[2021-05-20 07:57] VITALS: BP 127/60
--- NOTE | 2021-05-20 12:56 | NUR ---
on-going assessmeNT: CM REVIEWED CHART AND SPOKE WITH PT AND HIS DAUGHTER Jonny at the BEDSIDE. JONNY DID CONFIRM SHE IS THE DPOA, CM WAS ABLE TO FIND DPOA PAPERWORK ON FILE IN [employer] AND PRINTED AND ADDED TO HARD COPY OF THE CHART AND PROVIDED DAUGHTER WITH A COPY SHE HAD MISPLACED IT. PTS DAUGHTER REPORTS CONCERNS OF PATIENT RETURNING TO [facility] SHE REPORTS HE HAS FALLEN TWICE IN A MONTH AND FEELS THE CARE THERE IS POOR. SHE REPORTS SHE HAD TALKED WITH THE HEAD NURSE AND ONLY WANTS HIM TO RETURN THERE IS HE HAS TO OTHERWISE IS SEEKING OTHER PLACEMENT. CM PROVIDED JONNY WITH A LIST OF FACILITIES. [facility]- CANNOT ACCEPT DUE [facility]: NO MEDICAID LTC, CANNOT ACCEPT [facility]: CURRENTLY ON [place] PER [place] AND CANNOT ACCEPT [facility]: CANNOT ACCEPT DUE TO BEDS [facility]: REFERRALS SENT AND BEDS AVAILABLE BUT AWAITING REVIEW [facility]: BEDS AVAILABLE, REFERRAL SENT AND AWAITING REVIEW. DEMETRIO ALSO REACHED OUT TO CAT LIASON FROM [facility] TO SEE IF SHE COULD FOLLOW UP ON DAUGHTERS CONCERNS ABOUT FATHERS CARE AT [facility]. CAT REPORTS SHE WILL FOLLOW UP. CM WILL CONTINUE TO FOLLOW TO ASIST NEEDED AND AWAITING INPUT FROM [facility] AND [facility].
--- NOTE | 2021-05-20 13:12 | NUR ---
ASSUMED PT CARE THIS AM. PT IS ALERT TO SELF AND CONFUSED. PT REMOVED IV AND TELE MONITOR. PT HAS AUST[place] CATH IN PLACE. LAST BM WAS TODAY. PT IS ON RROM AIR. PT FAMILY WAS AT THE BEDSIDE. INFORMED CM THAT PT FAMILY WANTED TO TALK TO HER. PT WAS WORKING WITH PHYSICAL THERAPY THIS AM. WILL CONTINUE TO MONITOR PT. FOLLOW POC.
[2021-05-20] MEDS ORDERED: CEROVITE SENIO1 EACH PO (15:07)
[2021-05-20 16:41] VITALS: BP 127/61
--- NOTE | 2021-05-21 04:04 | NUR ---
PT OBSERVED LYING ON HIS BED WITH NO CLOTHES ON.PT PREFERS TO HAVE THE SHEET AND BLANKET ON HIM.PT ALERT AND CONFUSED.PT NEEDS CONSTANT REMINDER TO LAEVE HIS AUSTIN CATH IN PLACE HE CONSTANTLY PULLS ON IT.BRUISING NOTED TO HIS L ARM.DRSG TO HIS L HIP DRY AND INATCT.PT SLEEPING ON HIS BED AT THIS TIME.CALL LIGHT WITHIN REACH.
[2021-05-21 04:27] VITALS: BP 148/58
[2021-05-21 07:30] VITALS: BP 138/62
--- NOTE | 2021-05-21 10:26 | NUR ---
ASSUMED PT CARE THIS AM. PT IS ALERT & ORIENTED TO SELF ONLY AND CONFUSED. PT HAS IV SITE ON L FA RUNNING LR @60ML/HR. PT HAS TELE MONITOR ON. PT HAS AUST[place] CATH IN PLACE. PT HAS BEEN REMOVING TELE, IV, PHILLIP DRESSING. PT IS ON ROOM AIR. PT TOLERATED DIET WELL THIS AM. WILL CONTINUE TO MONITOR PT. FOLLOW POC.
[2021-05-21] MEDS ORDERED: ACETAMINOPHEN325 M1 PO (14:01)
[2021-05-21 14:21] LABS: CALCIUM 7.9 mg/dL (8.5-10.1); CREATININE 0.7 mg/dL (0.7-1.3); POTASSIUM 4.4 mmol/L (3.5-5.1)
[2021-05-21] MEDS ORDERED: LIDODERM1 EACH TOP (14:49)
[2021-05-21 16:20] VITALS: BP 107/85
--- NOTE | 2021-05-21 16:30 | NUR ---
on-going assessment: CM REVIEWED CHART. MONTY NICOLE FROM [facility] DID A BEDSIDE EVAL AND THEY CAN ACCEPT PATIENT. PTS DAUGHTER JONNY WENT TO [facility] AND AGREEABLE WITH PLAN FOR PATIENT TO GO TO THEIR SNF AND TRANSITION TO LTC THERE. CM NOTIFIED RIVERATEGAN BRENT AT [facility] TO NOTIFY THAT PT IS NOW GOING TO ALTERNATE PLACEMENT AND DAUGHTER WANTS SOMEONE TO CONTACT HER ABOUT GETTING HIS BELONGINGS AND CONCERNS AT THEIR FACILITY. BRENT STATING SHE WILL FOLLOW UP. DEMETRIO RECEIVED A CALL FROM BONNIE AT [facility] AROUND 1610 STATING THAT HER PHYSICIAN DR. MONTAÑO WANTS TO TALK TO ATTENDING BEFORE ADMITTING THE PATIENT THEIR WAS A CONCERN ABOUT AN ANTIPSYCHOTIC MED HE RECEIVED A FEW DAYS AGO AND WANTS TO TALK TO ATTENDING BEFORE THEY TAKE PATIENT. DISCHARGE WAS CANCELED FOR TODAY UNTIL PHYSICIANS CAN TALK. DEMETIRO NOTIFIED DR. KELLOGG AND PROVIDED HER WITH THE CONTACT NUMBER. [facility] ONCE [facility]YSICIANS TALK. PLEASE CONTACT FREDERIC MILLAN AT [facility] TOMORROW AT [phone] TO FACILITATE DISCHARGE IF PHYSICIANS TALK AND THEY CAN ACCEPT. CONTACT PATIENTS DAUGHTER JONNY TO KEEP UPDATED. CHART COPY WHICH IS ALREADY MADE WILL NEED UPDATED AND SENTWITH PATIENT. IF ANY DISCHARGE ORDERS ARE CHANGED PLEASE FAX NEW DISCHARGE ORDERS TO [facility] FAX:[phone].
== END 2021-05-21 18:15 | DRG 521 ==
LOC: ER 10:04 → EROBS 13:21 → 4S 13:21
PROVIDERS: Emergency Medicine; Nurse Practitioner; ADMIT Surgery; ATTEND Surgery
PROC: 0SRS0JA Replacement of Left Hip Joint, Femoral Surface with Synthetic Substitute, Uncemented, Open Approach (ICD-10-PCS; principal; 2021-05-19)
DX: S72.002A Fracture of unspecified part of neck of left femur, initial encounter for closed fracture (principal); L89.313 Pressure ulcer of right buttock, stage 3; F23 Brief psychotic disorder; E44.0 Moderate protein-calorie malnutrition; I44.0 Atrioventricular block, first degree; I25.10 Atherosclerotic heart disease of native coronary artery without angina pectoris; I50.9 Heart failure, unspecified; E78.00 Pure hypercholesterolemia, unspecified; E11.9 Type 2 diabetes mellitus without complications; E03.9 Hypothyroidism, unspecified; F17.220 Nicotine dependence, chewing tobacco, uncomplicated; I44.1 Atrioventricular block, second degree; R13.10 Dysphagia, unspecified; N40.0 Benign prostatic hyperplasia without lower urinary tract symptoms; F03.90 Unspecified dementia, unspecified severity, without behavioral disturbance, psychotic disturbance, mood disturbance, and anxiety; Z20.822 Contact with and (suspected) exposure to COVID-19; I11.0 Hypertensive heart disease with heart failure; E66.9 Obesity, unspecified; Z68.30 Body mass index [BMI] 30.0-30.9, adult; I25.2 Old myocardial infarction; Z86.73 Personal history of transient ischemic attack (TIA), and cerebral infarction without residual deficits; Z90.49 Acquired absence of other specified parts of digestive tract; Z87.11 Personal history of peptic ulcer disease; Z88.0 Allergy status to penicillin; Z88.8 Allergy status to other drugs, medicaments and biological substances; Z88.6 Allergy status to analgesic agent; Z91.02 Food additives allergy status; Z79.82 Long term (current) use of aspirin; Z79.899 Other long term (current) drug therapy; W18.39XA Other fall on same level, initial encounter; Y93.89 Activity, other specified; Y92.89 Other specified places as the place of occurrence of the external cause; Y99.8 Other external cause status
CPT/HCPCS: 10100; 50010; 50101; 50414; 51412; 53000; 53078; 56525; 57103; 58605; 62110; 62900; 70005

== ENCOUNTER → 2021-09-09 | Outpatient (CLI) | payer OTHER ==
[~2021-09-09] MED LIST changes: +ACETAMINOPHEN325 M1 PO; +CEROVITE SENIO1 EACH PO; +DOXYCYCLINE HY100 M3 PO; +EUCERIN CREME57 GM TOP; +FUROSEMIDE 40 M40 M1 PO; +GLYCOLAX119 GM PO; +LEVOTHYROXINE100 MCG PO; +LIDODERM1 EACH TOP; +LUBRICATING TEA15 ML OPHTHALMIC; +MIRTAZAPINE15 M2 PO; +SIMVASTATIN80 MG PO; +TAMSULOSIN HCL0.4 MG PO; +[UNRECOGNIZED DRUG - OTHER] PO
== END ==
LOC: SJCVCIMAG 08:33
PROVIDERS: ATTEND Internal Medicine
DX: I34.0 Nonrheumatic mitral (valve) insufficiency (principal); I25.10 Atherosclerotic heart disease of native coronary artery without angina pectoris; I11.0 Hypertensive heart disease with heart failure; I50.9 Heart failure, unspecified; F32.9 Major depressive disorder, single episode, unspecified; E11.9 Type 2 diabetes mellitus without complications; E78.5 Hyperlipidemia, unspecified; R00.1 Bradycardia, unspecified; I44.0 Atrioventricular block, first degree; R01.1 Cardiac murmur, unspecified; Z79.82 Long term (current) use of aspirin; Z79.899 Other long term (current) drug therapy; Z87.891 Personal history of nicotine dependence